=== PATIENT | male | born 1985 | race Caucasian/White ===

== ENCOUNTER 2024-05-24 16:03 | Emergency (ER) | payer BC, OTHER ==
[2024-05-24] MEDS ORDERED: Lidocaine 1% 10 ML MDV INJECT ONE (17:22)
[2024-05-24] MEDS: Diphtheria,Pertussis(Acell),Tetanus Vaccine 0.5 ML Syringe IM ONE (17:40)
[2024-05-24] MEDS: Doxycycline Monohydrate 100 MG Cap PO ONE (18:55)
== END 2024-05-24 18:59 | disposition home or self-care (01) ==
LOC: JD.ED 16:03
DX: S62.634B Displaced fracture of distal phalanx of right ring finger, initial encounter for open fracture (principal); S62.636B Displaced fracture of distal phalanx of right little finger, initial encounter for open fracture; Z23 Encounter for immunization; Z88.0 Allergy status to penicillin; W23.1XXA Caught, crushed, jammed, or pinched between stationary objects, initial encounter
CPT/HCPCS: 12001; 73130; 90471; 90715; 99283; A9270; 99282